=== PATIENT | male | born 1990 | race Caucasian/White ===

== ENCOUNTER → 2019-04-26 15:50 | Outpatient (CLI) | payer SELFPAY ==
[2019-04-26 15:16] VITALS: BMI 26.4
--- NOTE | 2019-04-26 15:55 | RAD_ITS ---
STUDY: X-RAY - RIGHT HAND, ATTENTION 2 FINGER REASON FOR EXAM: Male, 28 years old. Injury, pain TECHNIQUE: 3 view(s) of the finger were obtained. COMPARISON: None. FINDINGS: Normal metacarpal head. Normal metacarpophalangeal joint. Normal proximal phalanx. Normal middle phalanx. Small calcific opacity along the ulnar aspect of the distal interphalangeal joint which may represent a small avulsion fracture. Normal proximal interphalangeal joint. Normal distal interphalangeal joint. Tiny (2 mm) (metallic radio opaque foreign body in the volar soft tissues volar to the proximal interphalangeal joint. RAD/Finger(s) Min 2 Views IMPRESSION: 1. Possible small avulsion fracture of the ulnar aspect of the distal phalanx at the distal interphalangeal joint. This may be acute or chronic. 2. 2 mm metallic foreign body in volar to the proximal interphalangeal joint. Electronically Signed: Miguel Garay MD at 16:15 EDT Tel , Service support ,
== END ==
LOC: HPRAD 15:54
PROVIDERS: Referring Provider Physician Assistant; Visit Provider Physician Assistant
DX: S67.190A Crushing injury of right index finger, initial encounter (principal); X58.XXXA Exposure to other specified factors, initial encounter; Y93.9 Activity, unspecified; Y92.9 Unspecified place or not applicable; Y99.9 Unspecified external cause status
CPT/HCPCS: 73140

== ENCOUNTER → 2019-05-11 08:59 | Outpatient (CLI) | payer SELFPAY ==
[2019-05-11 08:54] VITALS: BMI 26.4
--- NOTE | 2019-05-11 09:01 | RAD_ITS ---
STUDY: X-RAY - RIGHT HAND, ATTENTION SECOND FINGER REASON FOR EXAM: Male, 28 years old. Injury with tip of finger crushed by a sledgehammer TECHNIQUE: 3 view(s) of the finger were obtained. COMPARISON: None. FINDINGS: Normal metacarpal head. Normal metacarpophalangeal joint. Normal proximal phalanx. Normal middle phalanx. Normal distal phalanx. Normal proximal interphalangeal joint. Normal distal interphalangeal joint. There is no demonstrated fracture. There is stable 0.2 cm metallic foreign body in the soft tissues on the volar aspect at the level of the proximal interphalangeal joint. RAD/Finger(s) Min 2 Views IMPRESSION: No fracture seen. Abnormality seen on the prior exam likely represented artifact from bandage overlying the finger Electronically Signed: Jcarlos Muñoz MD at 10:25 EDT , Service support ,
== END ==
LOC: HPRAD 09:00
PROVIDERS: Referring Provider Physician Assistant; Visit Provider Physician Assistant
DX: S62.660B Nondisplaced fracture of distal phalanx of right index finger, initial encounter for open fracture (principal); X58.XXXA Exposure to other specified factors, initial encounter; Y93.9 Activity, unspecified; Y92.9 Unspecified place or not applicable; Y99.9 Unspecified external cause status
CPT/HCPCS: 73140